=== PATIENT | female | born 1985 | race Caucasian/White ===

== ENCOUNTER → 2020-06-08 | Outpatient (CLI) | payer OTHER ==
--- NOTE | 2020-06-08 08:33 | RAD ---
EXAM: Ultrasound OB Greater than 14 weeks INDICATION: Reason: UT/SIZE DATE DISCREPANCY / Spl. Instructions: / History: TECHNIQUE: Real-time obstetrical ultrasound was performed with permanent freeze-frame documentation. COMPARISON: None. FINDINGS: POSITION: Cephalic HEART RATE: 132 bpm ARLYN: Normal PLACENTA: Anterior grade 1 CERVICAL LENGTH: 4.8 cm MATERNAL UTERUS: Unremarkable. MATERNAL ADNEXA: Unremarkable. AGE/DATES: Gestational Age by LMP: 20 weeks 2 days Gestation Age by US: 19 weeks 4 days EDC by LMP: 10/24/2020 EDC by US: 10/29/2020 WEIGHT: 314 grams +/- 46 grams PERCENTILE WEIGHT: Not estimated BIOMETRIC PARAMETERS: BPD: 4.3 cm corresponding with 19 weeks 0 days HC: 16.4 cm corresponding with 19 weeks 1 day AC: 14.2 cm corresponding with 19 weeks 4 days FL: 3.3 cm corresponding with 20 weeks 2 days ANATOMY: CARDIAC: Normal four chamber heart. Normal right and left ventricular outflow tracts. UMBILICAL CORD: Normal 3 vessel cord. Normal cord insertion. BRAIN: Unremarkable. NOSE/LIPS: Unremarkable. SPINE: Unremarkable. EXTREMITIES: Unremarkable. STOMACH: Unremarkable. KIDNEYS: Unremarkable. BLADDER: Unremarkable. IMPRESSION: Normal OB ultrasound demonstrating a single viable fetus in cephalic position. Estimated gestational age of 19 weeks 4 days and EDC of 10/29/2020. Electronically signed by: Judy Goodwin MD (06/08/2020 8:30 AM) [id number]
== END ==
LOC: US 07:01
PROVIDERS: ATTEND Obstetrics & Gynecology
DX: Z34.92 Encounter for supervision of normal pregnancy, unspecified, second trimester (principal); Z3A.19 19 weeks gestation of pregnancy
CPT/HCPCS: 76805

== ENCOUNTER → 2020-08-22 | Outpatient (CLI) | payer BC, OTHER ==
[2020-08-22 12:22] LABS: BASO % 0 % (0-3); EOS # 0.1 x10^3/uL (0.0-0.7); EOS % 1 % (0-3); HEMATOCRIT 31.2 % (36.0-47.0); HEMOGLOBIN 10.9 g/dL (12.0-15.5); LYMPH # 1.6 x10^3/uL (1.0-4.8); LYMPH % 26 % (24-48); MEAN CORPUSCULAR HEMOGLOBIN 33 pg (25-35); MEAN CORPUSCULAR HGB CONC 35 g/dL (31-37); MEAN CORPUSCULAR VOLUME 93 fL (79-100); MONO # 0.5 x10^3/uL (0.0-1.1); MONO % 8 % (0-9); NEUT % 64 % (31-73); PLATELET COUNT 277 x10^3/uL (140-400); RED BLOOD COUNT 3.34 x10^6/uL (3.50-5.40); RED CELL DISTRIBUTION WIDTH 13.6 % (11.5-14.5); WHITE BLOOD COUNT 6.3 x10^3/uL (4.0-11.0)
[2020-08-22 12:57] LABS: FREE T4 0.89 ng/dL (0.76-1.46); THYROID STIM HORMONE (TSH) 0.772 uIU/mL (0.358-3.74)
[2020-08-24 15:17] LABS: RUBELLA IGG ANTIBODY <0.90 index (Immune >0.99)
== END ==
LOC: LAB 08-21 10:00 → EDSTATUS 08-21 10:41 → LAB 08-21 14:51 → EDSTATUS 08-21 15:43 → LAB 12:00
PROVIDERS: ATTEND Obstetrics & Gynecology
DX: Z34.92 Encounter for supervision of normal pregnancy, unspecified, second trimester (principal); Z3A.00 Weeks of gestation of pregnancy not specified
CPT/HCPCS: 36415; 81220; 82950; 84439; 84443; 85025; 85660; 86592; 86703; 86762; 86787; 86803; 86850; 86900; 86901; 87340